=== PATIENT | male | born 1940 | race Caucasian/White ===

== ENCOUNTER 2020-11-07 11:44 | Observation (INO) | payer OTHER, MEDICARE ==
[2020-11-07] MEDS ORDERED: ADENOSINE 6 MG/2 ML VIAL IVPUSH ONE ×3 (12:08→12:36)
[2020-11-07 12:30] LABS: BASO % 0.7 % (0-2.0); EOS % 3.4 % (0-4.5); HEMATOCRIT 46.8 % (35.4-49); HEMOGLOBIN 16.4 GM/dL (11.7-16.9); LYMPH % 26.9 % (8-40); MCH 34.6 pg (25.7-33.7); MEAN PLT VOLUME 8.9 fl (7.5-11.1); MONO % 12.8 % (3.8-10.2); NEUT % 56.2 % (42.8-82.8); PLATELET COUNT 184 K/MM3 (134-434); RBC 4.72 M/mm3 (4.00-5.60); RDW 13.6 % (11.9-15.9); WHITE BLOOD COUNT 8.7 K/mm3 (4.0-10.0)
[2020-11-07] MEDS ORDERED: dilTIAZem HCL 125 MG/25 ML - 25 ML VIAL ONE ×2 (12:30→16:24)
[2020-11-07] MEDS ORDERED: dilTIAZem HCL 50 MG/10 ML - 10 ML VIAL IVPUSH ONE ×3 (12:35→15:25)
[2020-11-07] MEDS ORDERED: dilTIAZem HCL 30 MG TABLET PO ONE (12:49)
[2020-11-07 12:50] LABS: CHLORIDE 107 mmol/L (98-107); SODIUM 140 mmol/L (136-145)
[2020-11-07 12:51] LABS: CALCIUM 8.6 mg/dL (8.5-10.1)
[2020-11-07 12:52] LABS: ALBUMIN 3.7 g/dl (3.4-5.0); ANION GAP 9 MMOL/L (8-16); CO2 24 mmol/L (21-32); GLUCOSE,RANDOM 89 mg/dL (74-106); MAGNESIUM 2.2 mg/dL (1.8-2.4)
[2020-11-07 12:55] LABS: CREATININE 0.9 mg/dL (0.55-1.3); SGOT/AST 23 U/L (15-37); SGPT/ALT 25 U/L (13-61)
[2020-11-07 12:56] LABS: BILIRUBIN,TOTAL 0.8 mg/dL (0.2-1); TOT PROT 6.4 g/dl (6.4-8.2)
[2020-11-07 12:58] LABS: ALK PHOS 77 U/L (45-117)
[2020-11-07] MEDS ORDERED: dilTIAZem HCL 30 MG TABLET ONE ×2 (12:58→13:02)
[2020-11-07] MEDS ORDERED: ENOXAPARIN NA (PORCINE) 100 MG/1 ML DISP.SYRIN SQ ONE ×2 (15:23→16:24)
[2020-11-07] MEDS ORDERED: LABETALOL HCL 5 MG/1 ML (100MG/20 ML VIAL) ONE (21:28)
[2020-11-07] MEDS ORDERED: METOPROLOL TARTRATE 5 MG/5 ML VIAL ONE (21:29)
[2020-11-07] MEDS: METOPROLOL TARTRATE 5 MG/5 ML VIAL IVPUSH PRN (21:35)
[2020-11-07] MEDS ORDERED: ATORVASTATIN CA 20 MG TABLET (FP) ONE (23:11)
[2020-11-07] MEDS: ATORVASTATIN CA 20 MG TABLET (FP) PO SCH (23:12)
[2020-11-08] MEDS ORDERED: METOPROLOL TARTRATE 5 MG/5 ML VIAL ONE (02:49)
[2020-11-08] MEDS: METOPROLOL TARTRATE 5 MG/5 ML VIAL IVPUSH PRN (02:55)
[2020-11-08] MEDS ORDERED: dilTIAZem HCL 50 MG/10 ML - 10 ML VIAL IVPUSH ONE (05:55)
[2020-11-08] MEDS ORDERED: ENOXAPARIN NA (PORCINE) 100 MG/1 ML DISP.SYRIN SQ SCH (06:00)
[2020-11-08] MEDS ORDERED: dilTIAZem HCL 125 MG/25 ML - 25 ML VIAL ONE (06:05)
[2020-11-08 06:32] LABS: BASO % 0.4 % (0-2.0); EOS % 3.1 % (0-4.5); HEMATOCRIT 45.9 % (35.4-49); HEMOGLOBIN 15.9 GM/dL (11.7-16.9); LYMPH % 30.1 % (8-40); MCH 34.7 pg (25.7-33.7); MCHC 34.7 g/dl (32.0-35.9); MONO % 12.3 % (3.8-10.2); NEUT % 54.1 % (42.8-82.8); PLATELET COUNT 167 K/MM3 (134-434); RBC 4.59 M/mm3 (4.00-5.60); RDW 13.1 % (11.9-15.9); WHITE BLOOD COUNT 10.3 K/mm3 (4.0-10.0)
[2020-11-08 06:41] LABS: CHLORIDE 111 mmol/L (98-107); SODIUM 141 mmol/L (136-145)
[2020-11-08 06:44] LABS: CALCIUM 8.1 mg/dL (8.5-10.1)
[2020-11-08 06:45] LABS: ALBUMIN 3.3 g/dl (3.4-5.0); ANION GAP 7 MMOL/L (8-16); BLOOD UREA NITROGEN 16.6 mg/dL (7-18); CO2 24 mmol/L (21-32); GLUCOSE,RANDOM 94 mg/dL (74-106); MAGNESIUM 1.9 mg/dL (1.8-2.4)
[2020-11-08 06:47] LABS: SGOT/AST 15 U/L (15-37); SGPT/ALT 23 U/L (13-61)
[2020-11-08 06:48] LABS: CHOLESTEROL 104 mg/dL (50-200); CREATININE 0.8 mg/dL (0.55-1.3); LDL CHOLESTEROL (ONLY SJRH) 60 mg/dL (5-100); PHOSPHOROUS 2.7 mg/dL (2.5-4.9); TRIGLYCERIDES 95 mg/dL (0-150)
[2020-11-08 06:49] LABS: BILIRUBIN,TOTAL 0.9 mg/dL (0.2-1); HDL CHOLESTEROL 32 mg/dL (40-60); TOT PROT 5.7 g/dl (6.4-8.2)
[2020-11-08 06:50] LABS: ALK PHOS 61 U/L (45-117)
[2020-11-08] MEDS ORDERED: APIXABAN 5 MG TABLET ONE (09:26)
[2020-11-08] MEDS: APIXABAN 5 MG TABLET PO SCH ×2 (09:36→22:39)
[2020-11-08 10:28] VITALS: BMI 31.0
[2020-11-08] MEDS: ATORVASTATIN CA 20 MG TABLET (FP) PO SCH (22:40)
[2020-11-09 06:54] LABS: BASO % 0.4 % (0-2.0); EOS % 3.9 % (0-4.5); HEMATOCRIT 46.3 % (35.4-49); HEMOGLOBIN 15.4 GM/dL (11.7-16.9); LYMPH % 23.7 % (8-40); MCH 33.5 pg (25.7-33.7); MCHC 33.2 g/dl (32.0-35.9); MEAN CELL VOLUME 100.8 fl (80-96); MEAN PLT VOLUME 9.1 fl (7.5-11.1); MONO % 11.8 % (3.8-10.2); NEUT % 60.2 % (42.8-82.8); PLATELET COUNT 166 K/MM3 (134-434); RBC 4.59 M/mm3 (4.00-5.60); RDW 12.9 % (11.9-15.9); WHITE BLOOD COUNT 9.5 K/mm3 (4.0-10.0)
[2020-11-09 07:08] LABS: CALCIUM 8.1 mg/dL (8.5-10.1)
[2020-11-09] MEDS: APIXABAN 5 MG TABLET PO SCH ×2 (07:33→09:28)
[2020-11-09 12:05] VITALS: BP 106/71; PULSE 73; TEMP 98.3
== END 2020-11-09 14:00 | disposition home or self-care (01) ==
LOC: JER 11:44 → JERBED 15:08 → UNDOADMOB 15:08 → INTOOBSV 15:08 → JERBED 11-08 12:12 → J4W 11-08 17:42
PROVIDERS: ADMIT Student in an Organized Health Care Education/Training Program; ATTEND Student in an Organized Health Care Education/Training Program
PROC: 3E033GC Introduction of Other Therapeutic Substance into Peripheral Vein, Percutaneous Approach (ICD-10-PCS; principal; 2020-11-08)
PROC: 3E033GC Introduction of Other Therapeutic Substance into Peripheral Vein, Percutaneous Approach (ICD-10-PCS; 2020-11-08)
PROC: 3E033GC Introduction of Other Therapeutic Substance into Peripheral Vein, Percutaneous Approach (ICD-10-PCS; 2020-11-08)
PROC: 3E033GC Introduction of Other Therapeutic Substance into Peripheral Vein, Percutaneous Approach (ICD-10-PCS; 2020-11-08)
DX: I48.92 Unspecified atrial flutter (principal); I10 Essential (primary) hypertension; E78.5 Hyperlipidemia, unspecified; R53.1 Weakness
CPT/HCPCS: 36415; 71045-TC-FY; 80048; 80053; 80061; 82550; 83036; 83721; 83735; 84100; 84436; 84443; 84484; 85025; 93005; 93010; 93306-TC; 96374; 96375; 96376; 99285-25; C9803; G0378; U0003; U0005